=== PATIENT | female | born 1995 | race Two or more races ===

== ENCOUNTER 2019-11-16 17:16 | Emergency (ER) | payer SELFPAY ==
[2019-11-16 17:23] VITALS: BP 121/76
[2019-11-16] MEDS ORDERED: HYDROCODONE/ACETAMINOPHEN 5-325 MG (6 TAB/ER DISP) PO PRN (18:10)
--- NOTE | 2019-11-16 18:20 | ER Document Report ---
ED Skin Rash/Insect Bite/Abscs - General Chief Complaint: Abscess Stated Complaint: ABSCESS, RIGHT ARM Time Seen by Provider: 11/16/19 18:01 Primary Care Provider: JELLY DIAZ [Primary Care Provider] - Follow up as needed - [facility] Notes: 24-year-old female presents emergency room with complaints of a right elbow area of erythema induration warmth to touch that started 3 to 4 days ago. Patient is not tried any [id number] medications. Worse with time, nothing makes better. Noticed some drainage from her abscess no history of MRSA. Pain is 7/10, throbbing. Patient has Nexplanon for control. Eating and drink without issues. Return immediately for any new or worsening symptoms. Denies fevers, chills, chest pain,palpitations, shortness of breath, dyspnea, nausea, vomiting, diarrhea, abdominal pain, hematuria,blurred vision, double vision, loss of vision, speech changes, LH, dizziness, syncope, headaches, wheezing, ST, URI, neck pain, weakness, bowel or bladder dysfunction, saddle anesthesia, numbness or tingling in bilateral upper or lower extremities equally, muscle paralysis, weakness in bilateral upper or lower extremities equally. MEDICATIONS: I agree with the patient medications as charted by the RN. ALLERGIES: I agree with the allergies as charted by the RN. PAST MEDICAL HISTORY/PAST SURGICAL HISTORY: Reviewed and agree as charted by RN. SOCIAL HISTORY: Reviewed and agree as charted by RN. FAMILY HISTORY: No significant familial comorbid conditions directly related to patient complaint EXAM: Reviewed vital signs as charted by RN. REVIEW OF SYSTEMS:reviewed vital signs by RN CONSTITUTIONAL : Denies fever, chills, or sweats. Denies recent illness. EENT: Denies eye, ear, throat, or mouth pain or symptoms. Denies nasal or sinus congestion or discharge. Denies throat, tongue, or mouth swelling or difficulty swallowing. CARDIOVASCULAR: Denies chest pain. Denies palpitations or racing or irregular heart beat. Denies ankle edema. RESPIRATORY: Denies cough, cold, or chest congestion. Denies shortness of breath, difficulty breathing, or wheezing. GASTROINTESTINAL: Denies abdominal pain or distention. Denies nausea, vomiting, or diarrhea. Denies blood in vomitus, stools, or per rectum. Denies black, tarry stools. Denies constipation. GENITOURINARY: Denies difficulty urinating, painful urination, burning, frequency, blood in urine, or discharge. FEMALE GENITOURINARY: Denies vaginal bleeding, heavy or abnormal periods, irregular periods. Denies vaginal discharge or odor. MUSCULOSKELETAL: Denies back or neck pain or stiffness. Denies joint pain or swelling. SKIN: reports abscess to right elbow that's draining. Denies rash, lesions or sores. HEMATOLOGIC : Denies easy bruising or bleeding. LYMPHATIC: Denies swollen, enlarged glands. NEUROLOGICAL: Denies confusion or altered mental status. Denies passing out or loss of consciousness. Denies dizziness or lightheadedness. Denies headache. Denies weakness or paralysis or loss of use of either side. Denies problems with gait or speech. Denies sensory loss, numbness, or tingling. Denies seizures. PSYCHIATRIC: Denies anxiety or stress. Denies depression, suicidal ideation, or homicidal ideation. ALL OTHER SYSTEMS REVIEWED AND NEGATIVE. PHYSICAL EXAMINATION: GENERAL: Well-appearing, well-nourished and in no acute distress. HEAD: Atraumatic, normocephalic. EYES: Pupils equal round and reactive to light, extraocular movements intact, conjunctiva are normal. ENT: Nares patent, oropharynx clear without exudates. Moist mucous membranes. NECK: Normal range of motion, supple without lymphadenopathy LUNGS: Breath sounds clear to auscultation bilaterally and equal. No wheezes rales or rhonchi. HEART: Regular rate and rhythm without murmurs ABDOMEN: Soft, nontender, nondistended abdomen. No guarding, no rebound. No masses appreciated. Female : deferred Musculoskeletal: Normal range of motion, no pitting or edema. No cyanosis. NEUROLOGICAL: Cranial nerves grossly intact. Normal speech, normal gait. Normal sensory, motor exams PSYCH: Normal mood, normal affect. SKIN: Warm, Dry, normal turgor, no rashes or lesions noted. Noted approximately 1.5 x 1.5 cm annular anterior abscess that is draining purulent drainage without surrounding erythema, noted warmth to touch. Dictation was performed using Mi[employer] recognition software - Related Data Allergies/Adverse Reactions: No Known Allergies Allergy (Verified 11/16/19 17:57) Past Medical History - General Information source: Patient - Social History Smoking Status: Never Smoker Frequency of alcohol use: None Drug Abuse: None Family History: Reviewed & Not Pertinent Patient has homicidal ideation: No Physical Exam - Vital signs Vitals: Temp Pulse Resp BP Pulse Ox 98.5 F 80 20 121/76 99 11/16/19 17:22 11/16/19 17:22 11/16/19 17:22 11/16/19 17:22 11/16/19 17:22 Course - Re-evaluation Re-evalutation: 11/16/19 18:37 Afebrile vital stable no distress. Nurses notes reviewed. Wound culture obtained. right elbow draining. no surrounding erythema. wound culture obtained. will start on oral antibiotic therapy for 10 days. warm compress to site 20 minutes on, 20 minutes off several times a day. After performing a Medical Screening Examination, I estimate there is LOW risk for OPEN FRACTURE, COMPARTMENT SYNDROME, TENDON RUPTURE, ACUTE NEUROVASCULAR INJURY, or RETAINED FOREIGN BODY, thus I consider the discharge disposition reasonable. Also, there is no evidence or peritonitis, sepsis, or toxicity. I have reevaluated this patient multiple times and no significant life threatening changes are noted. The patient and I have discussed the diagnosis and risks, and we agree with discharging home with close follow-up with the understanding that symptoms and presentations can change. We also discussed returning to the Emergency Department immediately if new or worsening symptoms occur. We have discussed the symptoms which are most concerning (e.g., changing or worsening pain, fever, numbness, weakness, cool or painful digits) that necessitate immediate return. - Vital Signs Vital signs: Temp Pulse Resp BP Pulse Ox 98.5 F 80 20 121/76 99 11/16/19 17:57 11/16/19 17:22 11/16/19 17:22 11/16/19 17:22 11/16/19 17:22 Discharge - Discharge Clinical Impression: Abscess Condition: Stable Disposition: HOME, SELF-CARE Instructions: MRSA Cellulitis ([facility]), Abscess ([facility]), Oral Narcotic Medication ([facility]), Clindamycin ([facility]) Additional Instructions: Cellulitis You have an infection of your skin and underlying soft tissues called cellulitis. This is due to bacteria, which can enter through any break in the skin, or even through an irritated hair follicle. Untreated, cellulitis will usually worsen. Antibiotics are required. Usually, warm packs or warm soaks, and elevation of the infected area are recommended. You should start getting better within 24 to 36 hours. Most infections respond quickly to the right medication. Follow-up care is important, however, to check for abscess (boil) formation, unsuspected foreign body, or resistant infection. If you develop fever, chills, or if the area of infection is becoming rapidly more swollen or painful, call the doctor at once. Do not drive, drink or operate machinery while taking oral narcotic medication because sedation or impairment of cognitive function. Please apply warm compress to site 20 minutes on 20 minutes off several times a day. Do not burn yourself. Follow-up with primary care provider in the next 24 to 48 hours. Return immediately for any new or worsening symptoms. Follow up with primary care provider, call tomorrow to make followup appointment. Prescriptions: Clindamycin HCl 300 mg PO Q6H #28 capsule Forms: Return to Work Referrals: JELLY DIAZ [Primary Care Provider] - Follow up as needed
== END 2019-11-16 18:38 | disposition home or self-care (01) ==
LOC: ER 17:16
DX: L02.413 Cutaneous abscess of right upper limb (principal); Z97.5 Presence of (intrauterine) contraceptive device
CPT/HCPCS: 36415; 87070; 87077; 87186; 87205; 99282

== ENCOUNTER 2020-01-08 18:51 | Emergency (ER) | payer SELFPAY ==
[2020-01-08] MEDS ORDERED: HYDROCODONE/ACETAMINOPHEN 5-325 MG TABLET PO ONE (19:29)
--- NOTE | 2020-01-08 19:32 | ER Document Report ---
ED Medical Screen (RME) - General Chief Complaint: Boil Stated Complaint: BOIL-LEFT LEG Time Seen by Provider: 01/08/20 19:25 Notes: Patient is a 24-year-old female who presents the emergency department with a chief complaint of an abscess to her left inner thigh. Patient states that she noticed a small area about 2 days ago. She is stated that she tried to pop it, but but nothing came out. Denies any large amount of drainage. Patient states that she feels that there is some pus inside there. Denies any fever, body aches, or chills. Exam: Abscess noted to left medial thigh. Surrounding cellulitis noted. I have greeted and performed a rapid initial assessment of this patient. A comprehensive ED assessment and evaluation of the patient, analysis of test results and completion of medical decision making process will be conducted by an additional ED providers. - Related Data Allergies/Adverse Reactions: No Known Allergies Allergy (Verified 11/16/19 17:57) Physical Exam - Vital signs Vitals: Temp Pulse Resp BP Pulse Ox 99.2 F 92 24 H 136/82 H 100 01/08/20 18:56 01/08/20 18:56 01/08/20 18:56 01/08/20 18:56 01/08/20 18:56 Course - Vital Signs Vital signs: Temp Pulse Resp BP Pulse Ox 99.2 F 92 24 H 136/82 H 100 01/08/20 18:56 01/08/20 18:56 01/08/20 18:56 01/08/20 18:56 01/08/20 18:56
[2020-01-08] MEDS ORDERED: SULFAMETHOXAZOLE/TRIMETHOPRIM 800-160 MG TABLET PO ONE (21:49)
[2020-01-08] MEDS ORDERED: CEPHALEXIN 500 MG CAPSULE PO ONE (21:49)
[2020-01-08] MEDS ORDERED: LIDOCAINE 1%/EPINEPHRINE INJ 20 ML VIAL INJ ONE (21:49)
--- NOTE | 2020-01-08 21:50 | ER Document Report ---
ED Skin Rash/Insect Bite/Abscs - General Chief Complaint: Abscess Stated Complaint: BOIL-LEFT LEG Time Seen by Provider: 01/08/20 19:25 Notes: Patient is a 24-year-old female that comes emergency department for chief complaint of a infected area on her left inner thigh. Patient states it started 2 days ago, she states it looked like a pimple which she squeezed, she states afterwards the area started to become swollen, more tender, and had spreading redness today. She denies fever, chills, nausea, vomiting, or any other complaints. She states she has had 1 abscess previously which was drained and resolved. She denies any daily medications, she denies , she denies diabetes. - Related Data Allergies/Adverse Reactions: No Known Allergies Allergy (Verified 11/16/19 17:57) Past Medical History - General Information source: Patient - Social History Smoking Status: Never Smoker Frequency of alcohol use: None Drug Abuse: None Lives with: Family Family History: Reviewed & Not Pertinent Surgical Hx: Negative - Immunizations Immunizations up to date: Yes Hx Diphtheria, Pertussis, Tetanus Vaccination: Yes Review of Systems - Review of Systems Constitutional: No symptoms reported EENT: No symptoms reported Cardiovascular: No symptoms reported Respiratory: No symptoms reported Gastrointestinal: No symptoms reported Genitourinary: No symptoms reported Female Genitourinary: No symptoms reported Musculoskeletal: No symptoms reported Skin: See HPI Hematologic/Lymphatic: No symptoms reported Neurological/Psychological: No symptoms reported Physical Exam - Vital signs Vitals: Temp Pulse Resp BP Pulse Ox 99.2 F 92 24 H 136/82 H 100 01/08/20 18:56 01/08/20 18:56 01/08/20 18:56 01/08/20 18:56 01/08/20 18:56 - Notes Notes: GENERAL: Alert, interacts well. No acute distress. HEAD: Normocephalic, atraumatic. EYES: Pupils equal, round, and reactive to light. Extraocular movements intact. ENT: Oral mucosa moist, tongue midline. Oropharynx unremarkable. Airway patent. NECK: Full range of motion. Supple. Trachea midline. No lymphadenopathy. LUNGS: Clear to auscultation bilaterally, no wheezes, rales, or rhonchi. No respiratory distress. Non-tender chest wall. HEART: Regular rate and rhythm. No murmur ABDOMEN: Soft, non-tender. Non-distended. EXTREMITIES: Moves all 4 extremities spontaneously. No edema, normal radial and dorsalis pedis pulses bilaterally. No cyanosis. BACK: no cervical, thoracic, lumbar midline tenderness. No saddle anesthesia, normal distal neurovascular exam. Moves all extremities in full range of motion. NEUROLOGICAL: Alert and oriented x3. Normal speech. Cranial nerves II through XII grossly intact. Strength 5/5 in all extremities. PSYCH: Normal affect, normal mood. SKIN: In the left mid medial thigh there is an abscess which has a small head with a scab with some induration, there is also surrounding secondary cellulitis. No streaking away from the area, no lymphangitis, normal hip, knee, ankle exam, normal distal neurovascular exam. Course - Re-evaluation Re-evalutation: Abscess was clean, drained, packed. Patient placed on antibiotics for the abscess and surrounding cellulitis. Discussed elevation, antibiotics, care, f ollow-up, return precautions. Patient states understanding and agreement. - Vital Signs Vital signs: Temp Pulse Resp BP Pulse Ox 98.7 F 88 16 138/72 H 100 01/08/20 23:11 01/08/20 23:11 01/08/20 23:11 01/08/20 23:11 01/08/20 23:11 Procedures - Incision and Drainage Left mid medial thigh Type: Simple Anesthetic type: 1% Lidocaine mL's of anesthetic: 8 Blade size: 11 I&D procedure: Chlorprep applied, Shurclens applied, Iodoform packing placed Incision Method: Incision made by scalpel Amount/type of drainage: Moderate amount of purulent drainage, small amount of bloody drainage Discharge - Discharge Clinical Impression: Abscess Cellulitis Qualifiers: Site of cellulitis: extremity Site of cellulitis of extremity: lower extremity Laterality: left Qualified Code(s): L03.116 - Cellulitis of left lower limb Condition: Stable Disposition: HOME, SELF-CARE Instructions: Oral Narcotic Medication ([facility]) Additional Instructions: The abscess has been drained. You also have an area infection around this called cellulitis. It is important that you elevate your leg, take the antibiotics as prescribed, and that you remove the packing placed in the abscess in 2 days. Keep the area clean with soap and water with an absorbent dressing over the area. Follow-up with primary care. Return if you worsen including spreading redness, severe worsening pain, fever, or any other concerning symptoms. Prescriptions: Sulfamethoxazole/Trimethoprim [Bactrim Ds Tablet] 2 each PO BID 7 Days #28 tablet Cephalexin Monohydrate [Keflex 500 mg Capsule] 500 mg PO QID #28 capsule Forms: Return to Work
[2020-01-08] MEDS ORDERED: HYDROCODONE/ACETAMINOPHEN 5-325 MG (6 TAB/ER DISP) PO PRN (23:00)
[2020-01-08 23:11] VITALS: BP 138/72
== END 2020-01-08 23:11 | disposition home or self-care (01) ==
LOC: ER 18:51
DX: L02.416 Cutaneous abscess of left lower limb (principal)
CPT/HCPCS: 99283; 10060; J3490